=== PATIENT | female | born 1960 | race African-American/Black ===

== ENCOUNTER 2022-10-29 17:03 | Outpatient (CLI) | payer SELFPAY ==
--- NOTE | ~2022-10-29 | XR_ITS ---
EXAMINATION: XR chest 2V Exam Date/Time: 10/29/2022 17:25 CDT HISTORY: ACUTE COUGH x 4 weeks Comparison: None available. RESULT: Lines, tubes, and devices: None. Lungs and pleura: Clear. Cardiomediastinal silhouette: Unremarkable. Other: No acute osseous or upper abdominal finding. IMPRESSION: No acute cardiopulmonary process. Reviewed, dictated and finalized at location K.
== END 2022-10-29 17:04 | disposition home or self-care (01) ==
DX: R05.1 Acute cough (principal)
CPT/HCPCS: 71046